=== PATIENT | male | born 1995 | race African-American/Black ===

== ENCOUNTER 2020-07-15 21:56 | Emergency (ER) | payer MEDICAID ==
[~2020-07-15] VITALS: Ht 180.3 cm; Wt 125.0 kg
[2020-07-15 22:10] VITALS: BP 140/92
== END 2020-07-16 07:19 | disposition left against medical advice (07) ==
LOC: ER 21:58
DX: M79.632 Pain in left forearm (principal); M79.631 Pain in right forearm; Z53.21 Procedure and treatment not carried out due to patient leaving prior to being seen by health care provider